=== PATIENT | male | born 1995 | race Caucasian/White ===

== ENCOUNTER 2021-01-11 21:51 | Emergency (ER) | payer OTHER ==
--- NOTE | 2021-01-11 22:58 | ED Physician Documentation ---
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 He did have a little bit of lightheadedness associated with this he denies any nausea or loss of consciousness. Review of Systems Constitutional: denies: Fever Eyes: denies: Decreased vision Ears: denies: Ear pain Nose: denies: Congestion Throat: denies: Sore throat Cardiac: denies: Chest pain / pressure, Palpitations Respiratory: denies: Dyspnea, Cough GI: denies: Abdominal Pain, Nausea, Vomiting : denies: Dysuria, Frequency PD PAST MEDICAL HISTORY - Past Medical History Past Medical History: No Cardiovascular: None Respiratory: None Neuro: None Endocrine/Autoimmune: None GI: None : None HEENT: None Psych: None Musculoskeletal: None Derm: None Other Past Medical History: lft knee pain - Past Surgical History Past Surgical History: Yes General: Other Ortho: Other - Present Medications Home Medications: Ambulatory Orders Medication Instructions Recorded Confirmed Naproxen [EC-Naprosyn] 500 mg PO 01/11/21 No Known Home Medications 01/11/21 01/11/21 - Social History Does the pt smoke?: Yes Smoking Status: Current every day smoker Does the pt drink ETOH?: Yes Does the pt have substance abuse?: No - Immunizations Immunizations are current?: Yes - POLST Patient has POLST: No PD ED PE NORMAL - Vitals Vital signs reviewed: Yes (Hypertensive) - General General: Alert and oriented X 3, No acute distress, Well developed/nourished - HEENT HEENT: PERRL, EOMI, Other (There is a 2 cm laceration over the nasal bridge that is superficial and there is another laceration to the lateral aspect of the left upper eyelid. Neither of these involve deeper structures and they are both clean) Results - Vitals Vitals: Vital Signs - 24 hr 01/11/21 01/11/21 22:03 22:06 Temperature 36.7 C 36.7 C Heart Rate 93 93 Respiratory 15 15 Rate Blood Pressure 149/85 H 149/85 H O2 Saturation 99 99 Oxygen O2 Source Room air Procedures - Laceration (location) asad Length in cm: 3 Wound type: Linear, Irregular, Clean Wound preparation: Hibiclens, Irrigated copiously NS, Wound explored, To the base Skin layer closure: Dermabond Other: Patient tolerated well, No complications, Neurovascular intact, Tetanus UTD PD MEDICAL DECISION MAKING - ED course Complexity details: considered differential, d/w patient ED course: 25-year-old male with superficial lacerations to the face from a contusion on an airplane at work is amenable to Dermabond in both of these lacerations have excellent result. Departure - Departure Disposition: 01 Home, Self Care Clinical Impression: Face lacerations Qualifiers: Encounter type: initial encounter Qualified Code(s): S01.81XA - Laceration without foreign body of other part of head, initial encounter Condition: Stable Instructions: ED Laceration Facial Skin Glue Follow-Up: KATHARINE Metzger [Provider Group]
[2021-01-11 23:04] VITALS: BP 132/72
== END 2021-01-11 23:02 | disposition home or self-care (01) ==
LOC: ED 21:51
DX: S01.81XA Laceration without foreign body of other part of head, initial encounter (principal); S01.21XA Laceration without foreign body of nose, initial encounter; W22.09XA Striking against other stationary object, initial encounter; Y93.89 Activity, other specified; Y92.135 Garage on military base as the place of occurrence of the external cause; Y99.1 Military activity; F17.200 Nicotine dependence, unspecified, uncomplicated
CPT/HCPCS: 12013; 99281; 99282